=== PATIENT | female | born 1990 | race African-American/Black ===

== ENCOUNTER 2017-09-20 16:39 | Emergency (ER) | payer OTHER, SELFPAY ==
[2017-09-20] MEDS ORDERED: Ibuprofen 200 MG TAB ONE (18:42)
== END 2017-09-20 18:59 | disposition home or self-care (01) ==
LOC: ERS 16:39
DX: J10.1 Influenza due to other identified influenza virus with other respiratory manifestations (principal); F17.210 Nicotine dependence, cigarettes, uncomplicated
CPT/HCPCS: 99283

== ENCOUNTER 2018-11-07 19:59 | Emergency (ER) | payer SELFPAY ==
[2018-11-07] MEDS ORDERED: Ondansetron ODT 4 MG TAB ONE (20:37)
[2018-11-07 20:41] LABS: Bilirubin Negative (Negative); Blood, Urine Negative (Negative); Clarity CLEAR (Clear); Glucose, Urine (Dipstick) Negative (Negative); Leukocyte Negative (Negative); Nitrite Negative (Negative); Pregnancy Test - Urine (BHCG) Negative (Negative); Pregu Control Background? CLEAR/WHITE (CLR/WHITE); Pregu Control Bar Appear? YES (CONTROL BAR); Protein, Urine (Dipstick) Negative (Neg-Trace); pH, Urine 7.5 (5.0-9.0)
== END 2018-11-07 21:27 | disposition home or self-care (01) ==
LOC: ERS 19:59
DX: R11.2 Nausea with vomiting, unspecified (principal); F17.210 Nicotine dependence, cigarettes, uncomplicated
CPT/HCPCS: 81003; 81025; 99284; Q0162

== ENCOUNTER 2019-03-19 07:25 | Emergency (ER) | payer SELFPAY ==
[2019-03-19] MEDS ORDERED: Ondansetron ODT 4 MG TAB ONE (07:53)
== END 2019-03-19 08:14 | disposition home or self-care (01) ==
LOC: ERS 07:25
DX: R11.2 Nausea with vomiting, unspecified (principal); R19.7 Diarrhea, unspecified; F17.210 Nicotine dependence, cigarettes, uncomplicated
CPT/HCPCS: 99283; Q0162

== ENCOUNTER 2019-05-20 18:09 | Observation (INO) | payer OTHER, SELFPAY ==
[2019-05-20 18:44] LABS: #Lymphocytes 1.5 thou/uL (1.20-3.40); #Monocytes 0.7 thou/uL (0.11-0.59); #Neutrophils 11.4 thou/uL (1.40-6.50); %Basophils 0.2 % (0.0-1.0); %Lymphocytes 10.9 % (21.0-51.0); %Monocytes 5.3 % (0.0-10.0); %Neutrophils 83.6 % (42.0-75.0); Hemoglobin 9.6 g/dL (12.0-16.0); Mean Corpuscular HGB CONC 30.6 g/dL (32.0-36.0); Mean Corpuscular Hemoglobin 20.7 pg (27.0-31.0); Mean Corpuscular Volume 67.8 fL (78.0-98.0); Mean Platelet Volume 10.1 fL (7.4-10.4); Platelet Count 285 thou/uL (130-400); RBC Distribution Width 18.2 % (11.5-14.5); Red Blood Cell (RBC) Count 4.61 mill/uL (4.20-5.40); White Blood Cell (WBC) Count 13.6 thou/uL (4.8-10.8)
[2019-05-20 19:05] LABS: ALT (SGPT) 17 U/L (8-55); AST (SGOT) 47 U/L (5-34); Albumin 5.3 g/dL (3.5-5.0); Alkaline Phosphatase 64 U/L (40-150); Anion Gap 19 mmol/L (10-20); BUN (Urea Nitrogen) 23 mg/dL (7.0-18.7); Bilirubin, Total 0.8 mg/dL (0.2-1.2); Calc. Creatinine Clearance 0 mL/min (70-130); Calcium 10.5 mg/dL (7.8-10.44); Carbon Dioxide 19 mmol/L (22-29); Chloride 103 mmol/L (98-107); Estimated GFR-MDRD Greater than 90; Globulin 3.5 g/dL (2.4-3.5); Glucose 94 mg/dL (70-105); Potassium 3.4 mmol/L (3.5-5.1); Protein, Total 8.8 g/dL (6.0-8.3); Sodium 138 mmol/L (136-145)
--- NOTE | 2019-05-20 19:06 | CT ---
CT HEAD WITHOUT CONTRAST: 05/20/2019 HISTORY: Possible seizure. COMPARISON: 12/01/2016 TECHNIQUE: Axial CT imaging at 5 mm intervals from the vertex through the skull base without contrast. TECHNIQUE: Serial axial CT imaging obtained at 5 mm intervals from the vertex through the skull base without con trast. FINDINGS: The imaged paranasal sinuses and mastoid air cells are well aerated with no displaced calvarial fract ure seen. There is no intracranial hemorrhage, midline shift, mass effect, or ventricular enlargemen t. IMPRESSION: No acute findings. POS: GINA
[2019-05-20 19:08] LABS: Elliptocytes SLIGHT = 2-5 cells (100X) (0-1/hpf); Helmet Cells SLIGHT = 2-5 cells (100X) (0-1/hpf); Hypochromia SLIGHT = 6-15 cells (100X) (0-5/hpf); MDiff Complete? YES; Microcytosis MODERATE=15-30 cells (100X) (0-5/hpf); Platelet Morphology Comment Appears Adequate; Polychromasia SLIGHT = 2-3 cells (100X) (0-2/hpf); Target Cells SLIGHT = 2-5 cells (100X) (0-1/hpf); Tear Drops SLIGHT = 2-5 cells (100X) (0-1/hpf)
[2019-05-20 19:52] LABS: BHCG - Serum Negative (NEGATIVE); Pregs Control Background? CLEAR/WHITE (CLR/WHITE); Pregs Control Bar Appear? YES (CONTROL BAR)
[2019-05-20 20:02] LABS: Bilirubin Negative (Negative); Blood, Urine 3+ (Negative); Clarity Clear (Clear); Glucose, Urine (Dipstick) Normal (Negative); Leukocyte Negative Leu/uL (Negative); Nitrite Negative (Negative); Pregnancy Test - Urine (BHCG) Negative (Negative); Pregu Control Background? CLEAR/WHITE (CLR/WHITE); Pregu Control Bar Appear? YES (CONTROL BAR); Protein, Urine (Dipstick) 600 mg/dL (Neg-Trace); Specific Gravity 1.035 (1.002-1.036); Urobilinogen Normal mg/dL (Less than 2)
[2019-05-20 20:06] LABS: Troponin I Less than 0.010 ng/mL (< 0.028)
[2019-05-20 20:12] LABS: Bacteria/HPF Rare-Few HPF (None Seen)
[2019-05-20 20:21] LABS: Amphetamine Not Detected (NotDetected); Barbiturates Screen Not Detected (NotDetected); Benzodiazepine Screen Not Detected (NotDetected); Cocaine Metabolite Screen Not Detected (NotDetected); Medtox Control Line Valid? VALID (VALID); Medtox Reader # READER 1; Methadone Not Detected (NotDetected); Methamphetamine Not Detected (NotDetected); Opiate Screen Not Detected (NotDetected); Oxycodone Screen Not Detected (NotDetected); Phencyclidine (PCP) Not Detected (NotDetected); THC/Cannabinoid Screen Not Detected (NotDetected); Tricyclic Screen Not Detected (NotDetected)
[2019-05-20] MEDS ORDERED: Amlodipine 5 MG TAB ONE (21:05)
[2019-05-20] MEDS ORDERED: cefTRIAXone\\ROCEPHIN 1 GM VIAL ONE (21:07)
[2019-05-20] MEDS ORDERED: Senokot S 8.6-50 MG TAB PO PRN (21:47)
--- NOTE | 2019-05-20 21:50 | PDOC.FPRHP ---
- History of Present Illness Chief Complaint: HTN urgency History of Present Illness: Patient is 28F from retirement presenting s/p seizure-like activity and reported episode of syncope this afternoon. Patient reports that she woke up and found several retirement security officers surrounding her. Denies being able to recall seizure event. Patient had more seizure-like activity in ED that was witnessed by Dr. Jones. He reports that she was tracking and engaged during the encounter. Prolactin negative. 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 Dr. Jones agreeable to likelihood that this event was also a pseudoseizure. Patient reports that she had been vomiting multiple times yesterday, "all day," and multiple times today as well. captain of guards present could not confirm this at this time. She reported of stomach pain that began after she had vomited multiple times. Patient had BP elevated multiple times and was diaphoretic on exam. Patient was non-cooperative during the majority of the evaluation. Would keep her eyes closed and only answer questions after being asked repeatedly. Physical exam was limited 2/2 patient hostility and uncooperative behavior. ED Course: Started on 1g rocephin for elevated WBC (13.6) and 10mg PO amlodipine - Allergies/Adverse Reactions Allergies Allergy/AdvReac Type Severity Reaction Status Date / Time No Known Allergies Allergy Verified 09/23/16 07:03 - Home Medications Medication Instructions Recorded Confirmed Type No Known 05/21/19 05/21/19 History - History PMHx: seasonal allergies PSHx: none FHx: patient uncooperative Social: 1ppd smoker, no etoh, no drugs; in retirement - Review of Systems ROS unobtainable: other (non-cooperative patient) Respiratory: denies: shortness of breath Cardiovascular: denies: chest pain Gastrointestinal: reports: vomiting. denies: diarrhea - Vital signs BP: [186/91] HR: [73] RR: [16] Tmax: [98.3] Pox: [100]% on [RA] Wt: [68.152kg ] - Physical Exam Constitutional: other (eyes closed throughout exam, un-cooperative throughout most of exam.) HEENT: normocephalic and atraumatic Chest: no-tender to palpation Heart: RRR, normal S1/S2 Lungs: CTAB, no respiratory distress Abdomen: other (ttp epigastric region) Musculoskeletal: normal structure, ROM grossly normal Neurological: no focal deficit Skin: no jaundice Heme/Lymphatic: no unusual bruising or bleeding Psychiatric: other (very irritable) FMR H&P: Results - Labs Result Diagrams: 05/20/19 18:32 05/21/19 04:09 Lab results: WBC 13.6 thou/uL (4.8-10.8) H 05/20/19 18:32 Hgb 9.6 g/dL (12.0-16.0) L 05/20/19 18:32 Hct 31.3 % (36.0-47.0) L 05/20/19 18:32 MCV 67.8 fL (78.0-98.0) L 05/20/19 18:32 Plt Count 285 thou/uL (130-400) 05/20/19 18:32 Neutrophils % 83.6 % (42.0-75.0) H 05/20/19 18:32 Sodium 138 mmol/L (136-145) 05/20/19 18:32 Potassium 3.4 mmol/L (3.5-5.1) L 05/20/19 18:32 Chloride 103 mmol/L (98-107) 05/20/19 18:32 Carbon Dioxide 19 mmol/L (22-29) L 05/20/19 18:32 BUN 23 mg/dL (7.0-18.7) H 05/20/19 18:32 Creatinine 0.81 mg/dL (0.6-1.1) 05/20/19 18:32 Glucose 94 mg/dL (70-105) 05/20/19 18:32 Calcium 10.5 mg/dL (7.8-10.44) H 05/20/19 18:32 Total Bilirubin 0.8 mg/dL (0.2-1.2) 05/20/19 18:32 AST 47 U/L (5-34) H 05/20/19 18:32 ALT 17 U/L (8-55) 05/20/19 18:32 Alkaline Phosphatase 64 U/L (40-150) 05/20/19 18:32 Serum Total Protein 8.8 g/dL (6.0-8.3) H 05/20/19 18:32 Albumin 5.3 g/dL (3.5-5.0) H 05/20/19 18:32 Urine Ketones 60 mg/dL (Negative) A 05/20/19 19:15 Urine Blood 3+ (Negative) A 05/20/19 19:15 Urine Nitrite Negative (Negative) 05/20/19 19:15 Ur Leukocyte Esterase Negative Eugenio/uL (Negative) 05/20/19 19:15 Urine RBC 4-6 HPF (0-3) A 05/20/19 19:15 Urine WBC 7-10 HPF (0-3) A 05/20/19 19:15 Ur Squamous Epith Cells 4-6 HPF (0-3) A 05/20/19 19:15 Urine Bacteria Rare-Few HPF (None Seen) 05/20/19 19:15 - EKG Interpretation EKG: t-wave inversion in V2 - Radiology Interpretation CT scan - head Status: report reviewed by me (Negative for acute process) FMR H&P: A/P - Problem List (1) Hypertensive urgency Current Visit: Yes Status: Acute Code(s): I16.0 - HYPERTENSIVE URGENCY (2) Leukocytosis Current Visit: Yes Status: Acute Code(s): D72.829 - ELEVATED WHITE BLOOD CELL COUNT, UNSPECIFIED - Plan 28F presented with likely pseudoseizures and found to have hypertensive urgency #Hypertensive Urgency -BP 180s-200s/100s-140s in ED -amlodipine 10mg PO given in ED, will continue at this time -IVP labetalol SBP >180 -trending trops, initial trop negative #Leukocytosis -WBC 13.6 -UA showed blood, WBC -urine culture pending, will f/u -given dose of rocephin in ED, will hold at this time -likely inflammatory DVT Proph: lovenox GI proph: pepcid Diet: regular Dispo: tele obs for htn urgency, likely d/c tmrw with anti-hypertensive meds Code Status: full FMR H&P: Upper Level - Plan Date/Time: 05/20/192149 IWilliam MD, have evaluated this patient and agree with findings/plan as outlined by technology intern resident. Pertinent changes/additions are listed here. Prachi Angeles is a 28 year old F with a PMH of Induced HTN and marijuana use who presents from the retirement for alleged seizure like activity. Patient has a history of multiple ER visits and previous diagnosis of pseudoseizures. Pt apparently had episode of full body shaking while in the ED that was witnessed by ERMD, who stated that patient was tracking during the event and he believes it was a pseudoseizure. Brain CT was done that showed no acute findings. Patient had a normal prolactin in the ED. Incidentally, patient had a BP that was 205/125 in the ED. She was asymptomatic, with the exception of sweating. EKG was showed sinus arrhythmia with possible left atrial enlargement. Patient denies any chest pain, palpitations, dyspnea. Initial trop was negative. Patient is being placed on obs/tele for hypertensive urgency. Will trend troponins. Patient started on amlodipine in the ED, will continue this and order prn antihypertensives. Patient was given rocephin in the ED for slightly elevated wbc count at 13.6, will hold at this time. Urine culture is pending. Patient will likely be discharged on 05/21 with instructions to follow up outpatient for hypertension management. Will attempt to gain better control of hypertension while she is here. Anticipate hospital stay < 2 midnights. Please see technology intern note above for full H&P, which I have reviewed and agree with. Addendum - Attending - Attending Attestation Date/Time: 05/21/19 1036 I personally evaluated the patient and discussed the management with Dr. Hernandez and team on 05/20. I agree with the History, Examination, Assessment and Plan documented above with any addition or exceptions noted below. Patient refused complete H&P by me. ER physician mostly concerned 2/2 diaphoresis. No h/a, cp/n/v. Will begin antihypertensives and observe overnight.
[2019-05-20 22:09] LABS: Troponin I Less than 0.010 ng/mL (< 0.028)
[2019-05-21 00:24] VITALS: BMI 23.5
[2019-05-21] MEDS: Labetalol HCl 100 MG/20 ML VIAL SLOW IVP PRN ×3 (00:54→16:57)
[2019-05-21] MEDS: Acetaminophen 325 MG TAB PO PRN ×2 (00:54→22:14)
[2019-05-21] MEDS: Ondansetron ODT 4 MG TAB PO PRN (00:55)
[2019-05-21 01:11] LABS: Troponin I Less than 0.010 ng/mL (< 0.028)
[2019-05-21 04:49] LABS: Anion Gap 19 mmol/L (10-20); BUN (Urea Nitrogen) 22 mg/dL (7.0-18.7); Calc. Creatinine Clearance 121 mL/min (70-130); Carbon Dioxide 19 mmol/L (22-29); Chloride 102 mmol/L (98-107); Estimated GFR-MDRD Greater than 90; Glucose 100 mg/dL (70-105); Sodium 137 mmol/L (136-145)
[2019-05-21] MEDS ORDERED: Potassium Chloride 20 MEQ TAB PO SCH ×2 (05:30→14:20)
--- NOTE | 2019-05-21 05:50 | PDOC.FM ---
- Subjective Subjective: Patient sleeping in bed this morning, easily awakens. States that she feels better today. No seizure-like activity overnight, event security officer also says patient slept all night. Still has abdominal pain in middle of abdomen. Denies nausea/vomiting, headache, dysuria. Family Hx: Mom of Colon Cancer at age 52. Dad alive, diagnosed with Prostate Cancer in age early 50s. Both Dad and paternal grandmother have HTN and take "multiple meds". - Objective Vital Signs & Weight: Vital Signs (12 hours) Temp Pulse Resp BP BP Pulse Ox 05/21/19 03:59 98.7 F 91 18 164/112 H 100 05/21/19 00:54 87 183/122 H 05/20/19 23:45 98.8 F 87 20 193/118 H 99 Weight Weight 68.152 kg Result Diagrams: 05/20/19 18:32 05/21/19 11:16 Phys Exam - Physical Examination Constitutional: NAD HEENT: moist MMs, sclera anicteric Neck: no JVD, supple, full ROM Respiratory: no wheezing, no rales, no rhonchi, clear to auscultation bilateral Cardiovascular: RRR, no significant murmur Gastrointestinal: soft, non-tender, positive bowel sounds Musculoskeletal: no edema, pulses present Neurological: non-focal, normal sensation, moves all 4 limbs Psychiatric: normal affect, A&O x 3 Skin: no rash, normal turgor Dx/Plan (1) Hypokalemia Code(s): E87.6 - HYPOKALEMIA Status: Acute (2) Hypertensive urgency Code(s): I16.0 - HYPERTENSIVE URGENCY Status: Acute (3) Leukocytosis Code(s): D72.829 - ELEVATED WHITE BLOOD CELL COUNT, UNSPECIFIED Status: Acute - Plan Plan: 28F presents with likely pseudoseizures and found to have hypertensive urgency: #Hypertensive Urgency -BP 180s-200s/100s-140s in ED; continues to be elevated on the floor with check of 164/112 at 0400 on 05/21 -amlodipine 10mg PO given in ED, will continue at this time with next dose at 0900 today -IVP labetalol prn for SBP >180 -trops negative x 4 #Leukocytosis -WBC 13.6, Neut. 83% -UA showed blood, WBC, contaminated sample -urine culture pending -given dose of rocephin 1g x 1 dose in ED, did not continue on floor -likely inflammatory #Hypokalemia -Potassium 3.0 on 8 AM -Given 40mEq KCl x 1 -repeat BMP at 11:00 Code Status: FULL DVT Proph: lovenox GI proph: pepcid Diet: regular Dispo: Admit to telemetry obs for htn urgency, anticipated LOS <48hrs with d/c likely later today with anti-hypertensive meds. Addendum - Attending - Attending Attestation Date/Time: 05/21/19 3684 I personally evaluated the patient and discussed the management with Dr. Coe. I agree with the History, Examination, Assessment and Plan documented above with any addition or exceptions noted below.
[2019-05-21] MEDS: Nicotine 21 MG PATCH TD SCH (08:13)
[2019-05-21] MEDS: Amlodipine 10 MG TAB PO SCH (09:14)
[2019-05-21] MEDS: Famotidine 20 MG TAB PO SCH ×2 (09:14→22:14)
[2019-05-21] MEDS: Enoxaparin Sodium 40 MG/0.4 ML SYRINGE SC SCH (09:15)
[2019-05-21 11:58] LABS: Anion Gap 17 mmol/L (10-20); BUN (Urea Nitrogen) 22 mg/dL (7.0-18.7); Calc. Creatinine Clearance 115 mL/min (70-130); Calcium 10.5 mg/dL (7.8-10.44); Carbon Dioxide 21 mmol/L (22-29); Chloride 103 mmol/L (98-107); Estimated GFR-MDRD Greater than 90; Glucose 101 mg/dL (70-105); Potassium 3.3 mmol/L (3.5-5.1); Sodium 138 mmol/L (136-145)
[2019-05-21] MEDS: hydrOXYzine 25 MG TAB PO PRN ×2 (17:29→22:14)
[2019-05-21 21:27] LABS: Anion Gap 18 mmol/L (10-20); BUN (Urea Nitrogen) 20 mg/dL (7.0-18.7); Calc. Creatinine Clearance 122 mL/min (70-130); Calcium 10.1 mg/dL (7.8-10.44); Carbon Dioxide 21 mmol/L (22-29); Chloride 102 mmol/L (98-107); Estimated GFR-MDRD Greater than 90; Glucose 99 mg/dL (70-105); Potassium 3.6 mmol/L (3.5-5.1); Sodium 137 mmol/L (136-145)
[2019-05-22] MEDS: Ondansetron ODT 4 MG TAB PO PRN ×2 (01:57→09:25)
[2019-05-22 04:19] LABS: #Lymphocytes 2.1 thou/uL (1.20-3.40); #Monocytes 0.4 thou/uL (0.11-0.59); #Neutrophils 4.9 thou/uL (1.40-6.50); %Basophils 0.5 % (0.0-1.0); %Eosinophils 0.7 % (0.0-10.0); %Lymphocytes 28.5 % (21.0-51.0); %Neutrophils 65.4 % (42.0-75.0); Hemoglobin 10.6 g/dL (12.0-16.0); Mean Corpuscular HGB CONC 30.6 g/dL (32.0-36.0); Mean Corpuscular Hemoglobin 21.1 pg (27.0-31.0); Mean Corpuscular Volume 69.1 fL (78.0-98.0); Mean Platelet Volume 10.9 fL (7.4-10.4); Platelet Count 338 thou/uL (130-400); Red Blood Cell (RBC) Count 5.01 mill/uL (4.20-5.40); White Blood Cell (WBC) Count 7.5 thou/uL (4.8-10.8)
[2019-05-22 04:20] LABS: Anion Gap 16 mmol/L (10-20); BUN (Urea Nitrogen) 22 mg/dL (7.0-18.7); Calc. Creatinine Clearance 127 mL/min (70-130); Calcium 9.9 mg/dL (7.8-10.44); Carbon Dioxide 22 mmol/L (22-29); Chloride 103 mmol/L (98-107); Estimated GFR-MDRD Greater than 90; Glucose 100 mg/dL (70-105); Potassium 3.4 mmol/L (3.5-5.1); Sodium 138 mmol/L (136-145)
[2019-05-22] MEDS: Nicotine 21 MG PATCH TD SCH (05:47)
--- NOTE | 2019-05-22 05:48 | PDOC.FM ---
- Subjective Subjective: Patient's BP continues to remain high. This morning patient complains of headache and legs hurting. She is nauseous and states she began dry heaving earlier this morning. Another provider saw her shortly after and symptoms were completely resolved with no complaints at that time. - Objective Vital Signs & Weight: Vital Signs (12 hours) Temp Pulse Resp BP BP Pulse Ox 05/22/19 04:00 98.7 F 84 18 168/121 H 96 05/21/19 23:49 99.2 F 92 18 178/123 H 100 05/21/19 20:30 98.8 F 92 18 161/110 H 96 05/21/19 18:26 83 172/117 H Weight Weight 68.152 kg I&O: 05/20/19 05/21/19 05/22/19 06:59 06:59 06:59 Intake Total 480 902 Balance 480 902 Result Diagrams: 05/22/19 03:23 05/22/19 03:23 Phys Exam - Physical Examination Constitutional: NAD HEENT: moist MMs, sclera anicteric Neck: no JVD, supple, full ROM Respiratory: no wheezing, no rhonchi, clear to auscultation bilateral Cardiovascular: RRR, no significant murmur Gastrointestinal: soft, non-tender, no distention, positive bowel sounds Musculoskeletal: pulses present 1+ nonpitting edema in LE. Tender to palpation in LE. Neurological: normal sensation, moves all 4 limbs Psychiatric: normal affect, A&O x 3 Skin: no rash, normal turgor Dx/Plan (1) Hypokalemia Code(s): E87.6 - HYPOKALEMIA Status: Acute (2) Hypertensive urgency Code(s): I16.0 - HYPERTENSIVE URGENCY Status: Acute (3) Leukocytosis Code(s): D72.829 - ELEVATED WHITE BLOOD CELL COUNT, UNSPECIFIED Status: Acute - Plan Plan: 28F presents with likely pseudoseizures and found to have hypertensive urgency: #Hypertensive Urgency -BP 180s-200s/100s-140s in ED; continues to be elevated on the floor with checks of 161/110 -> 178/123 -> 168/121 overnight -amlodipine 10mg PO given in ED, will continue at this time with next dose at 0900 today -IVP labetalol prn for SBP >180, continues to be given x3 on floor -trops negative x 4 -Metoprolol succinate 25 mg given 1 dose on 05/21, start daily dosing on 05/22 -Aldosterone & Renin activity labs ordered, consider r/o Hyperaldosteronism ( Conn's Syndrome) -Consider renal U/S to r/o fibromuscular dysplasia is Aldosterone labs ordered -Add Hydralazine prn to blood pressure meds -Add Hydrochlorothiazide 12.5mg daily to blood pressure meds #Leukocytosis -WBC 13.6, Neut. 83% -> WBC 7.5 (05/22) -UA showed blood, WBC, contaminated sample -urine culture pending -given dose of rocephin 1g x 1 dose in ED, did not continue on floor -likely inflammatory #Hypokalemia -Potassium 3.0 on 05/21 AM -> 3.3 -> 3.6 -> 3.4 -Given 40mEq KCl x 2 -monitor AM BMP -will discharge on 20meQ Potassium daily Code Status: FULL DVT Proph: lovenox GI proph: pepcid Diet: regular Dispo: Admit to telemetry obs for htn urgency, anticipated LOS <48hrs with d/c likely later today with planned anti-hypertensive meds to include Amlodipine 10mg daily, Metoprolol Tartrate 50 mg BID, and Hydrochlorothiazide 12.5 mg daily. Addendum - Attending - Attending Attestation Date/Time: 05/22/19 7733 I personally evaluated the patient and discussed the management with Dr. Coe. I agree with the History, Examination, Assessment and Plan documented above with any addition or exceptions noted below. Prachi was asymptomatic this morning during rounds. She desires discharge form hosptial. Altough her BP is not optimally controlled, she is stable for discharge and further outpt management of HTN.
[2019-05-22] MEDS ORDERED: hydrALAZINE 10 MG TAB PO PRN (07:40)
[2019-05-22] MEDS: Acetaminophen 325 MG TAB PO PRN (08:30)
[2019-05-22] MEDS: Amlodipine 10 MG TAB PO SCH (08:31)
[2019-05-22] MEDS: Famotidine 20 MG TAB PO SCH (08:32)
[2019-05-22] MEDS: Enoxaparin Sodium 40 MG/0.4 ML SYRINGE SC SCH (08:32)
[2019-05-22] MEDS ORDERED: Hydrochlorothiazide 25 MG TAB PO SCH (11:00)
[2019-05-22 11:15] VITALS: TEMP 98.3
[2019-05-22] MEDS ORDERED: Potassium Chloride 20 MEQ TAB PO SCH (11:46)
[2019-05-22 12:39] VITALS: BP 147/98
--- NOTE | 2019-05-23 03:37 | DIS ---
DATE OF ADMISSION: 05/20/2019 DATE OF DISCHARGE: 05/22/2019 RESIDENT: Capri Coe DO ADMITTING ATTENDING: Harley Hunter MD DISCHARGE ATTENDING: Dawit Vences MD CONSULTS: None. PROCEDURE PERFORMED: Brain CT on May 20, 2019: No acute finding. PRIMARY DIAGNOSIS: Hypertensive urgency. SECONDARY DIAGNOSES: 1. Pseudoseizure. 2. Leukocytosis. 3. Hypokalemia. DISCHARGE MEDICATIONS: 1. Amlodipine 10 mg p.o. daily. 2. Hydrochlorothiazide 12.5 mg p.o. daily. 3. Metoprolol tartrate 50 mg p.o. b.i.d. 4. Potassium chloride 20 mEq p.o. daily. DISCONTINUED MEDICATIONS: 1. Rocephin 1 g x1 dose on May 20. 2. Acetaminophen 650 mg p.o. q.4 hours p.r.n. for pain. 3. Ondansetron 4 mg p.o. q.6 hours p.r.n. for nausea. 4. Sennosides/docusate sodium two tabs p.o. b.i.d. p.r.n. for constipation. 5. Nicotine 21 mg transdermal q.24 hours. 6. Labetalol HCL 10 mg slow IVP q.4 hours p.r.n. for systolic pressure greater than 180. 7. Enoxaparin sodium 40 mg subcutaneous at 0900 daily. 8. Famotidine 20 mg p.o. b.i.d. 9. Hydroxyzine 25 mg p.o. q.6 hours p.r.n. for anxiety. 10. Hydralazine 10 mg p.o. q.6 hours p.r.n. for diastolic pressure greater than 110. HISTORY OF PRESENT ILLNESS/HOSPITAL COURSE: The patient is a 28-year-old female from [facility], who presented to the [facility] ED status- post seizure-like activity and reported episode of syncope earlier this afternoon. The patient reports that she woke up and found several long-term security officers surrounding her. She denies being able to recall a seizure event. The patient had more seizure-like activity in the ED that was witnessed by Dr. Jones. He reports that she was tracking and engaged during the encounter. Prolactin was negative. She has been seen in the hospital for similar activity before and it was determined at that time to be a pseudo-seizure. Dr. Jones agreed to the likelihood that this event was also a pseudo-seizure. The patient reports that she had been vomiting multiple times the day before "all day" and multiple times today as well. guard driver present could not confirm this at that time. She reported stomach pain that began after she had vomited multiple times. The patient had blood pressure elevated multiple times throughout her time in the ER and was diaphoretic on exam. The patient was noncooperative during the majority of the evaluation. She would keep her eyes closed and only answer questions after being asked repeatedly. Physical exam was limited secondary to patient hostility and uncooperative behavior. In the ED, she was started on 1 g Rocephin x1 dose for an elevated white blood cell count of 13.6 and 10 mg p.o. amlodipine. The patient was decided to admit for observation to the medicine service. She was continued on amlodipine 10 mg daily and was started on p.r.n. labetalol for systolic pressures greater than 180. On the morning of May 21, 2019, the patient stated that she felt better and denied any seizure-like activity overnight. The physical security specialist in the room also says the patient slept through the night and did not recognize any seizure-like activity. The patient still complained of abdominal pain in the middle of her abdomen. She denied nausea, vomiting, headache, or dysuria at that time. The patient relate a further family history of mother, who of colon cancer at the age of 52. Her father is currently alive and both he and his mother have hypertension for which they take "multiple medications." That day, the patient' s blood pressures continue to be elevated with multiple checks of systolic pressures greater than 160 and diastolic pressures greater than 110. She required three doses of labetalol that day. In the afternoon around 3:00 p.m., the patient was started on metoprolol succinate. Additionally on this day, the patient had a low potassium of 3.0 for which she required 40 mEq of KCl supplement. On the morning of May 22, 2019, the patient's blood pressure remained high with previous check of 178/123. Pulse had remained in the 80s and 90s throughout the hospital stay. The patient initially complained of a headache and her legs hurting. She also was nauseous and stated that she has been dry heaving earlier in the morning. However, other providers saw her shortly after this time and her symptoms were completely resolved with no complaints at that time. She expressed that she wished to return to [facility]. She stated that she would continue to be compliant with new medications she was discharged with. The patient will require very close followup and management of her hypertension. She still has renin and aldosterone activity labs pending and will plan to notify her when those become available. At this time, the patient was deemed stable for discharge back to [facility]. PERTINENT LABORATORY DATA: 1. Labs on May 20, 2019: CBC: WBC 13.6, hemoglobin 9.6, hematocrit 31.3, platelets 285. CMP: Sodium 138, potassium 3.4, chloride 103, carbon dioxide 19, BUN 23, creatinine 0.81, glucose 94, calcium 10.5, AST 47, ALT 17, alkaline phosphatase 64, total bilirubin 0.8. Prolactin 8.56. Urine test negative. Troponins negative x3. Urine analysis: Protein 600, glucose normal, ketone 60, blood 3+, nitrite negative, leukocyte esterase negative, rbc 4-6, wbc 7-10, squamous epithelial cells 4-6, bacteria rare to few. Urine drug screen negative. Magnesium 2.2. DISPOSITION: Stable. DISCHARGE INSTRUCTIONS: 1. Location: [facility]. 2. Diet: Regular. 3. Activity: As tolerated. 4. Followup: Followup with a primary care provider in 7 days for further management of hypertension. Job ID: [id number] [id number]
[2019-05-23] MEDS ORDERED: Hydrochlorothiazide 25 MG TAB PO SCH (09:00)
[2019-05-25 16:08] LABS: Renin Activity Less than 0.167 ng/mL/hr (0.167-5.380)
== END 2019-05-22 13:33 ==
LOC: ERS 18:09 → 2SE 21:06
PROVIDERS: ADMIT Emergency Medicine; ATTEND Emergency Medicine
DX: I16.0 Hypertensive urgency (principal); D72.829 Elevated white blood cell count, unspecified; R56.9 Unspecified convulsions; E87.6 Hypokalemia; F17.210 Nicotine dependence, cigarettes, uncomplicated
CPT/HCPCS: 36415; 70450; 80048; 80053; 80306; 81003; 81015; 81025; 82088; 83735; 84146; 84244; 84484; 84703; 85025; 87086; 93005; 96365; 96372; 96375; 96376; G0378; J0696; J1650; Q0162

== ENCOUNTER 2020-03-27 08:44 | Emergency (ER) | payer SELFPAY | END 2020-03-27 09:24 | disposition home or self-care (01) | LOC: ERS 08:44 | DX: S51.812D Laceration without foreign body of left forearm, subsequent encounter (principal); F17.210 Nicotine dependence, cigarettes, uncomplicated; X58.XXXD Exposure to other specified factors, subsequent encounter | CPT/HCPCS: 99282 ==

== ENCOUNTER 2020-12-23 06:48 | Emergency (ER) | payer SELFPAY ==
[2020-12-23 07:25] LABS: #Eosinphils 0.1 thou/uL (0.0-0.7); #Monocytes 0.6 thou/uL (0.11-0.59); #Neutrophils 8.9 thou/uL (1.40-6.50); %Basophils 0.2 % (0.0-1.0); %Eosinophils 0.6 % (0.0-10.0); %Lymphocytes 17.4 % (21.0-51.0); %Monocytes 4.8 % (0.0-10.0); %Neutrophils 77.1 % (42.0-75.0); Hemoglobin 8.9 g/dL (12.0-16.0); Mean Corpuscular HGB CONC 30.3 g/dL (32.0-36.0); Mean Corpuscular Hemoglobin 19.8 pg (27.0-31.0); Mean Corpuscular Volume 65.4 fL (78.0-98.0); Mean Platelet Volume 9.5 fL (7.4-10.4); Platelet Count 470 thou/uL (130-400); RBC Distribution Width 18.4 % (11.5-14.5); Red Blood Cell (RBC) Count 4.48 mill/uL (4.20-5.40); White Blood Cell (WBC) Count 11.6 thou/uL (4.8-10.8)
[2020-12-23] MEDS ORDERED: Promethazine HCl 25 MG/ML VIAL ONE (07:34)
[2020-12-23 07:38] LABS: ALT (SGPT) 16 U/L (8-55); AST (SGOT) 36 U/L (5-34); Albumin 4.7 g/dL (3.5-5.0); Alkaline Phosphatase 56 U/L (40-110); Anion Gap 16 mmol/L (10-20); BUN (Urea Nitrogen) 18 mg/dL (7.0-18.7); Bilirubin, Total 0.5 mg/dL (0.2-1.2); Calc. Creatinine Clearance 0 mL/min (70-130); Calcium 9.5 mg/dL (7.8-10.44); Carbon Dioxide 21 mmol/L (22-29); Chloride 102 mmol/L (98-107); Globulin 3.9 g/dL (2.4-3.5); Glucose 111 mg/dL (70-105); Lipase 23 U/L (8-78); Potassium 3.1 mmol/L (3.5-5.1); Protein, Total 8.6 g/dL (6.0-8.3); Sodium 136 mmol/L (136-145)
[2020-12-23 08:16] LABS: Hypochromia SLIGHT = 6-15 cells (100X) (0-5/hpf); MDiff Complete? YES; Macrocytosis SLIGHT = 6-15 cells (100X) (0-5/hpf); Platelet Morphology Comment Appears Increased; Schistocytes SLIGHT = 2-5 cells (100X) (0-1/hpf)
[2020-12-23 09:39] LABS: Bacteria/HPF None Seen HPF (None Seen); Bilirubin Negative (Negative); Blood, Urine 1+ (Negative); Clarity Turbid (Clear); Glucose, Urine (Dipstick) Normal (Negative); Ketone, Urine 80 mg/dL (Negative); Leukocyte Negative Leu/uL (Negative); Nitrite Negative (Negative); Protein, Urine (Dipstick) 300 mg/dL (Neg-Trace); Specific Gravity, Urine 1.034 (1.002-1.036); WBC/HPF 0-3 HPF (0-3)
[2020-12-23 09:40] LABS: Pregnancy Test - Urine (BHCG) POSITIVE (Negative); Pregu Control Background? CLEAR/WHITE (CLR/WHITE); Pregu Control Bar Appear? YES (CONTROL BAR); Specific Gravity 1.034 (1.002-1.036)
== END 2020-12-23 11:20 | disposition home or self-care (01) ==
LOC: ERS 06:48
DX: O99.891 Other specified diseases and conditions complicating pregnancy (principal); R10.84 Generalized abdominal pain; O21.9 Vomiting of pregnancy, unspecified; O99.331 Smoking (tobacco) complicating pregnancy, first trimester; F17.210 Nicotine dependence, cigarettes, uncomplicated; Z3A.09 9 weeks gestation of pregnancy
CPT/HCPCS: 36415; 76856; 80053; 81003; 81015; 81025; 83690; 84702; 85025; 94760; 96365; 96366; J2550

== ENCOUNTER 2021-07-05 20:15 | Emergency (ER) | payer OTHER ==
[2021-07-05] MEDS ORDERED: Lidocaine 1% (PF) 30 ML VIAL ONE (22:31)
== END 2021-07-05 23:30 | disposition home or self-care (01) ==
LOC: ERS 20:15
DX: S62.511A Displaced fracture of proximal phalanx of right thumb, initial encounter for closed fracture (principal); I10 Essential (primary) hypertension; F17.210 Nicotine dependence, cigarettes, uncomplicated; W21.05XA Struck by basketball, initial encounter
CPT/HCPCS: 26725; J2001

== ENCOUNTER 2022-10-26 12:42 | Emergency (ER) | payer OTHER ==
[~2022-10-26 12:42] MED LIST: Iopamidol-370 76% 500 ML 1 ML ONE
[2022-10-26] MEDS ORDERED: Ondansetron PF 4 MG/2 ML Vial ONE (13:04)
[2022-10-26] MEDS ORDERED: Morphine 4 MG/ML VIAL ONE (13:04)
[2022-10-26] MEDS ORDERED: LORazepam 2 MG/ML SYR.(CARPUJECT) ONE (13:18)
[2022-10-26 13:26] LABS: #Eosinphils 0.3 thou/uL (0.0-0.7); #Lymphocytes 3.6 thou/uL (1.20-3.40); #Monocytes 0.7 thou/uL (0.11-0.59); #Neutrophils 7.2 thou/uL (1.40-6.50); %Basophils 0.3 % (0.0-1.0); %Eosinophils 2.1 % (0.0-10.0); %Lymphocytes 30.7 % (21.0-51.0); %Monocytes 5.8 % (0.0-10.0); Hemoglobin 9.7 g/dL (12.0-16.0); Mean Corpuscular HGB CONC 28.3 g/dL (32.0-36.0); Mean Corpuscular Hemoglobin 18.7 pg (27.0-31.0); Mean Platelet Volume 7.7 fL (7.4-10.4); Platelet Count 770 10x3/uL (130-400); Red Blood Cell (RBC) Count 5.18 mill/uL (4.20-5.40); White Blood Cell (WBC) Count 11.8 10x3/uL (4.8-10.8)
[2022-10-26 13:30] LABS: BHCG - Serum Negative (NEGATIVE); Pregs Control Background? CLEAR/WHITE (CLR/WHITE); Pregs Control Bar Appear? YES (CONTROL BAR)
[2022-10-26 13:39] LABS: Anisocytosis MODERATE=16-30 cells (100X) (0-5/hpf); Elliptocytes SLIGHT = 2-5 cells (100X) (0-1/hpf); Hypochromia SLIGHT = 6-15 cells (100X) (0-5/hpf); MDiff Complete? YES; Microcytosis SLIGHT = 6-15 cells (100X) (0-5/hpf); Ovalocytes SLIGHT = 2-5 cells (100X) (0-1/hpf); Platelet Morphology Comment Appears Increased; Poikilocytosis SLIGHT = 6-15 cells (100X) (0-5/hpf); Polychromasia SLIGHT = 2-3 cells (100X) (0-2/hpf); Target Cells SLIGHT = 2-5 cells (100X) (0-1/hpf)
[2022-10-26 13:51] LABS: ALT (SGPT) 9 U/L (8-55); AST (SGOT) 23 U/L (5-34); Alkaline Phosphatase 62 U/L (40-110); Anion Gap 18 mmol/L (10-20); BUN (Urea Nitrogen) 22 mg/dL (7.0-18.7); Bilirubin, Total 0.7 mg/dL (0.2-1.2); CK (CPK) 222 U/L (29-168); Calc. Creatinine Clearance 0 mL/min (70-130); Calcium 10.2 mg/dL (7.8-10.44); Carbon Dioxide 18 mmol/L (22-29); Estimated GFR 100; Globulin 3.9 g/dL (2.4-3.5); Glucose 126 mg/dL (70-105); Lipase 22 U/L (8-78); Magnesium 2.1 mg/dL (1.6-2.6); Potassium 3.8 mmol/L (3.5-5.1); Protein, Total 8.9 g/dL (6.0-8.3); Sodium 139 mmol/L (136-145)
[2022-10-26 14:06] LABS: Chloride 107 mmol/L (98-107)
[2022-10-26 15:55] LABS: Amphetamine Not Detected (NotDetected); Barbiturates Screen Not Detected (NotDetected); Benzodiazepine Screen Detected (NotDetected); Cocaine Metabolite Screen Not Detected (NotDetected); Methadone Not Detected (NotDetected); Methamphetamine Not Detected (NotDetected); Opiate Screen Detected (NotDetected); Oxycodone Screen Not Detected (NotDetected); Phencyclidine (PCP) Not Detected (NotDetected); THC/Cannabinoid Screen Not Detected (NotDetected); Tricyclic Screen Not Detected (NotDetected)
[2022-10-26 16:29] LABS: Lactic Acid 1.2 mmol/L (0.5-2.2)
[2022-10-26 17:19] LABS: Bilirubin Negative (Negative); Blood, Urine 3+ (Negative); Clarity Clear (Clear); Glucose, Urine (Dipstick) Normal (Negative); Ketone, Urine Negative (Negative); Leukocyte Negative Leu/uL (Negative); Nitrite Negative (Negative); Protein, Urine (Dipstick) 50 mg/dL (Neg-Trace); Urobilinogen Normal mg/dL (Less than 2); WBC/HPF 0-3 HPF (0-3); pH, Urine 5.5 (5.0-9.0)
[2022-10-26 17:22] LABS: Bacteria/HPF Rare-Few HPF (None Seen)
== END 2022-10-26 18:01 | disposition home or self-care (01) ==
LOC: ERS 12:42
DX: R11.2 Nausea with vomiting, unspecified (principal); R10.816 Epigastric abdominal tenderness; E86.0 Dehydration; D72.829 Elevated white blood cell count, unspecified; I10 Essential (primary) hypertension; F17.210 Nicotine dependence, cigarettes, uncomplicated
CPT/HCPCS: 36415; 36416; 70450; 71045; 74177; 80053; 80306; 81003; 81015; 82550; 83605; 83690; 83735; 84443; 84484; 84703; 85025; 87040; 93005; 96361; 96374; 96375; J2060; J2270; J2405; Q9967

== ENCOUNTER 2022-10-29 15:08 | Emergency (ER) | payer OTHER ==
[2022-10-29 16:57] LABS: #Eosinphils 0.2 thou/uL (0.0-0.7); #Lymphocytes 1.9 thou/uL (1.20-3.40); #Monocytes 0.6 thou/uL (0.11-0.59); #Neutrophils 7.8 thou/uL (1.40-6.50); %Basophils 0.3 % (0.0-1.0); %Eosinophils 1.8 % (0.0-10.0); %Lymphocytes 17.9 % (21.0-51.0); %Monocytes 5.9 % (0.0-10.0); %Neutrophils 74.2 % (42.0-75.0); Hemoglobin 8.8 g/dL (12.0-16.0); Mean Corpuscular HGB CONC 29.4 g/dL (32.0-36.0); Mean Corpuscular Hemoglobin 19.5 pg (27.0-31.0); Mean Corpuscular Volume 66.2 fl (78.0-98.0); Platelet Count 957 10x3/uL (130-400); RBC Distribution Width 22.8 % (11.5-14.5); Red Blood Cell (RBC) Count 4.52 mill/uL (4.20-5.40); White Blood Cell (WBC) Count 10.5 10x3/uL (4.8-10.8)
[2022-10-29 17:14] LABS: ALT (SGPT) 11 U/L (8-55); AST (SGOT) 24 U/L (5-34); Albumin 4.7 g/dL (3.5-5.0); Alkaline Phosphatase 56 U/L (40-110); Anion Gap 16 mmol/L (10-20); BUN (Urea Nitrogen) 16 mg/dL (7.0-18.7); Bilirubin, Total 0.5 mg/dL (0.2-1.2); Calc. Creatinine Clearance 0 mL/min (70-130); Calcium 9.9 mg/dL (7.8-10.44); Carbon Dioxide 24 mmol/L (22-29); Chloride 103 mmol/L (98-107); Estimated GFR 117; Globulin 3.2 g/dL (2.4-3.5); Glucose 109 mg/dL (70-105); Lipase 18 U/L (8-78); Potassium 3.8 mmol/L (3.5-5.1); Protein, Total 7.9 g/dL (6.0-8.3); Sodium 139 mmol/L (136-145)
[2022-10-29] MEDS ORDERED: Ondansetron PF 4 MG/2 ML Vial ONE (17:14)
[2022-10-29] MEDS ORDERED: Famotidine/PF 20 mg/2ml Vial ONE (17:14)
[2022-10-29] MEDS ORDERED: Magnesium 2 GM/50 ML BAG (IN WATER) ONE (17:14)
[2022-10-29] MEDS ORDERED: Mag-Al 1200 mg/1200 mg/30 ML UDCUP ONE (17:14)
[2022-10-29] MEDS ORDERED: Lidocaine Viscous Sol 2% 15 ml UD Cup ONE (17:14)
[2022-10-29 18:48] LABS: Bacteria/HPF None Seen HPF (None Seen); Bilirubin 1+ (Negative); Blood, Urine 1+ (Negative); Clarity Turbid (Clear); Glucose, Urine (Dipstick) Normal (Negative); Ketone, Urine Trace mg/dL (Negative); Leukocyte 75 Leu/uL (Negative); Nitrite Negative (Negative); Pregnancy Test - Urine (BHCG) Negative (Negative); Pregu Control Background? CLEAR/WHITE (CLR/WHITE); Pregu Control Bar Appear? YES (CONTROL BAR); Protein, Urine (Dipstick) 100 mg/dL (Neg-Trace); Specific Gravity 1.038 (1.002-1.036); Specific Gravity, Urine 1.038 (1.002-1.036); WBC/HPF 21-50 HPF (0-3)
[2022-10-29 19:02] LABS: Amphetamine Not Detected (NotDetected); Barbiturates Screen Not Detected (NotDetected); Benzodiazepine Screen Not Detected (NotDetected); Cocaine Metabolite Screen Not Detected (NotDetected); Methadone Not Detected (NotDetected); Methamphetamine Not Detected (NotDetected); Opiate Screen Not Detected (NotDetected); Oxycodone Screen Not Detected (NotDetected); Phencyclidine (PCP) Not Detected (NotDetected); THC/Cannabinoid Screen Detected (NotDetected); Tricyclic Screen Not Detected (NotDetected)
== END 2022-10-29 19:19 | disposition home or self-care (01) ==
LOC: ERS 15:08
DX: N39.0 Urinary tract infection, site not specified (principal); F41.9 Anxiety disorder, unspecified; E86.0 Dehydration; K21.9 Gastro-esophageal reflux disease without esophagitis; K29.70 Gastritis, unspecified, without bleeding; R00.0 Tachycardia, unspecified; I10 Essential (primary) hypertension; F17.210 Nicotine dependence, cigarettes, uncomplicated
CPT/HCPCS: 36415; 80053; 80306; 81003; 81015; 81025; 83690; 84484; 85025; 93005; 96361; 96365; 96375; J2405; J3475; S0028

== ENCOUNTER 2023-03-14 08:35 | Emergency (ER) | payer OTHER ==
[2023-03-14 09:11] LABS: Bacteria/HPF None Seen HPF (None Seen); Bilirubin Negative (Negative); Blood, Urine Negative (Negative); CAUTI Indications for Culture Dysuria,urgency,freq; Clarity Turbid (Clear); Glucose, Urine (Dipstick) Normal (Negative); Ketone, Urine 10 mg/dL (Negative); Leukocyte Negative Leu/uL (Negative); Nitrite Negative (Negative); Protein, Urine (Dipstick) 200 mg/dL (Neg-Trace); RBC/HPF 0-3 HPF (0-3); Specific Gravity, Urine 1.036 (1.002-1.036); WBC/HPF 0-3 HPF (0-3)
[2023-03-14 09:12] LABS: Pregnancy Test - Urine (BHCG) POSITIVE (Negative); Pregu Control Background? CLEAR/WHITE (CLR/WHITE); Pregu Control Bar Appear? YES (CONTROL BAR); Specific Gravity 1.036 (1.002-1.036); Urine Culture Reflex No No
[2023-03-14 09:19] LABS: #Monocytes 0.5 thou/uL (0.11-0.59); #Neutrophils 4.9 thou/uL (1.40-6.50); %Basophils 0.2 % (0.0-1.0); %Eosinophils 0.5 % (0.0-10.0); %Lymphocytes 31.3 % (21.0-51.0); %Monocytes 6.7 % (0.0-10.0); %Neutrophils 61.1 % (42.0-75.0); Hemoglobin 8.6 g/dL (12.0-16.0); Mean Corpuscular HGB CONC 29.4 g/dL (32.0-36.0); Mean Corpuscular Hemoglobin 20.2 pg (27.0-31.0); Mean Corpuscular Volume 68.8 fl (78.0-98.0); Mean Platelet Volume 9.7 fL (7.4-10.4); Platelet Count 313 10x3/uL (130-400); RBC Distribution Width 23.9 % (11.5-14.5); Red Blood Cell (RBC) Count 4.26 mill/uL (4.20-5.40); White Blood Cell (WBC) Count 8.1 10x3/uL (4.8-10.8)
[2023-03-14] MEDS ORDERED: Ondansetron ODT 8 MG TAB ONE (09:22)
[2023-03-14 09:25] LABS: BHCG - Serum POSITIVE (NEGATIVE); Pregs Control Background? CLEAR/WHITE (CLR/WHITE); Pregs Control Bar Appear? YES (CONTROL BAR)
[2023-03-14 09:48] LABS: ALT (SGPT) 8 U/L (8-55); AST (SGOT) 17 U/L (5-34); Albumin 4.8 g/dL (3.5-5.0); Alkaline Phosphatase 55 U/L (40-110); Anion Gap 15 mmol/L (10-20); BUN (Urea Nitrogen) 18 mg/dL (7.0-18.7); Bilirubin, Total 0.6 mg/dL (0.2-1.2); Calc. Creatinine Clearance 0 mL/min (70-130); Calcium 10.1 mg/dL (7.8-10.44); Carbon Dioxide 19 mmol/L (22-29); Chloride 104 mmol/L (98-107); Estimated GFR 115; Globulin 3.6 g/dL (2.4-3.5); Glucose 111 mg/dL (70-105); Lipase 22 U/L (8-78); Potassium 3.1 mmol/L (3.5-5.1); Protein, Total 8.4 g/dL (6.0-8.3); Sodium 135 mmol/L (136-145)
[2023-03-14] MEDS ORDERED: Pantoprazole 40 MG VIAL ONE (10:02)
[2023-03-14 10:38] LABS: CellaVision Operator ID LAB.GE; Elliptocytes SLIGHT = 2-5 cells HPF (0-1); Hypochromia MODERATE=16-30 cells HPF (0-5); Microcytosis MODERATE=15-30 cells HPF (0-5); Ovalocytes SLIGHT = 2-5 cells HPF (0-1); Platelet Adequacy Comment Platelets Normal; Polychromasia MODERATE = 3-4 cells HPF (0-2)
[2023-03-14] MEDS ORDERED: Potassium Chloride 20 MEQ TAB ONE (10:56)
[2023-03-14] MEDS ORDERED: Prochlorperazine 10 MG/2 ML VIAL ONE (10:59)
[2023-03-14] MEDS ORDERED: Dicyclomine 20 MG TAB ONE (10:59)
[2023-03-14] MEDS ORDERED: Labetalol HCl 100 MG/20 ML VIAL ONE ×2 (11:22→11:56)
[2023-03-14] MEDS ORDERED: Magnesium Sulfate In Water 4 GM in Premix Bag 1 BAG IVPB SCH (11:30)
[2023-03-14] MEDS ORDERED: Lidocaine 2% Viscous Solution 10 ML, Aluminum & Magnesium Hydroxide 30 ML SSW SCH (11:30)
[2023-03-14] MEDS ORDERED: metroNIDAZOLE 250 MG TAB ONE (12:27)
[2023-03-14 12:32] LABS: Creatinine, Urine 364.95 mg/dL (47-110)
[2023-03-14 12:34] LABS: Microalbumin Urine 63.2 mg/dL (0.5-50.0); Microalbumin/Creat Ratio 173.2 mg/g (Less than 30)
[2023-03-14] MEDS ORDERED: NIFEdipine XL 30 MG TAB ONE (13:24)
[2023-03-14 19:21] LABS: Chlamydia by PCR, Vaginal Swab Not Detected (NotDetected); GC by PCR, Vaginal Swab Not Detected (NotDetected); Tric.vaginalis PCR,Vaginal Sw Not Detected (NotDetected)
== END 2023-03-14 13:13 | disposition short-term general hospital (02) ==
LOC: ERS 08:35
DX: O14.90 Unspecified pre-eclampsia, unspecified trimester (principal); O99.891 Other specified diseases and conditions complicating pregnancy; O99.611 Diseases of the digestive system complicating pregnancy, first trimester; O20.8 Other hemorrhage in early pregnancy; K21.9 Gastro-esophageal reflux disease without esophagitis; F17.210 Nicotine dependence, cigarettes, uncomplicated; Z3A.10 10 weeks gestation of pregnancy
CPT/HCPCS: 36415; 71045; 76801; 80053; 81001; 81025; 82043; 82570; 83690; 84484; 84703; 85025; 87480; 87491; 87510; 87591; 87660; 87661; 93005; C9113; J0780; J3475; Q0162